=== PATIENT | female | born 1930 | race Caucasian/White ===

== ENCOUNTER 2018-05-17 14:34 | Inpatient (IN) | payer OTHER ==
[~2018-05-17] VITALS: Ht 167.6 cm; Wt 92.4 kg
--- NOTE | ~2018-05-17 | EKG ---
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: kath : 1930 Requested By: Jeri Vasquez Order Number: [id number] MD: Timi Zendejas Measurements Intervals [place] Rate: 156 P: PA: QRS: 68 QRSD: 85 T: 229 QT: 252 QTc: 406 Interpretive Statements Atrial fibrillation with rapid V-rate Repolarization abnormality, prob rate related Baseline wander in lead(s) V6 No previous ECG available for comparison Electronically Signed On 05-17-2018 21:38:28 CDT by Timi Zendejas [email or web address] <ELECTRONICALLY SIGNED> By: Timi Zendejas MD 05/17/18 2138 1438 1438 Timi Zendejas MD /JOSHUA
--- NOTE | ~2018-05-17 | HC ---
[facility] [place] [address] CONSULTATION Name: CHANDRAKANTFE Wendy Room #: 202-P [facility] IN ..#: [id number] Admission: 05/17/18 Attend Phys: Dilan Hall MD Discharge: Date of : [birth year] Report #: [id number] THIS REPORT FOR: //name// CC: AIYANA physician/PCP Dilan Hall DATE OF SERVICE: 05/20/2018 HISTORY OF PRESENT ILLNESS: The patient is an 87-year-old white female admitted with increased shortness of breath. She was noted to have atrial fibrillation with rapid ventricular rate with a rate around 150. Chest x-ray consistent with pneumonia. She also has hyponatremia, elevated creatinine. She has a history of a prior CVA with right-sided hemiparesis, upper extremity more than lower extremity. She notes that she was unable to ambulate alone premorbidly. She is very hard of hearing. 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 She is being treated for her pneumonia and COPD with exacerbation as well as her CHF exacerbation with an elevated BNP. She has acute on chronic systolic heart failure. She is being monitored regarding her hyponatremia and her renal insufficiency, which is noted to be acute on chronic. We are seeing her in rehabilitation medicine consultation. PAST MEDICAL HISTORY: Apparently has not seen a physician in approximately 20 years. 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 MEDICATIONS: Please see the full medication listing. The list includes prior herbal supplements and vitamins. ALLERGIES: Include no known drug allergies. HABITS: Former smoker, quit greater than a year ago. No history of alcohol abuse. SOCIAL HISTORY: Lives with her son and his in their home. She apparently lives in a third floor and there is noted to have someone always be there with her. She was able to mostly dress herself. Gait was with a roller walker. Per her history, she always needed someone with her when she ambulated. REVIEW OF SYSTEMS: Did not offer any current complaints of chest pain, shortness of breath or abdominal discomfort. She has some discomfort of that right upper extremity and has the weakness from the prior stroke. PHYSICAL EXAMINATION: GENERAL: She is a pleasant 87-year-old white female, who is very hard of hearing/appears to be deaf. NEUROLOGIC: Limited reading of lips is noted. She can follow basic 1 step [facility] [address] [place] [address] CONSULTATION Name: FE STALLINGS Room #: 202-P [facility] IN ..#: [id number] Admission: 05/17/18 Attend Phys: Dilan Hall MD Discharge: Date of : [birth year] Report #: [id number] commands. She is cooperative, although rather frustrated with her current condition. Facies appeared to be symmetric. She has evidence for some edema, swelling of both upper extremities, grade 1. Functional range of motion of the left upper extremity strength appears to be a grade 4-/5. Right upper extremity is weak. I would grade that at 2+ to 3-. Negative Thomas's. In her lower extremities, there is no focal calf swelling. Strength is a grade 3+/5. Toilet transfers are max assist with 3-4 steps max assist. ASSESSMENT: An 87-year-old white female with the following problem list: 1. Acute hypoxemic respiratory failure, likely multifactorial with congestive heart failure and chronic obstructive pulmonary disease. 2. 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 3. Chronic obstructive pulmonary disease with exacerbation. 4. Congestive heart failure exacerbation. 5. Pneumonia. 6. Atrial fibrillation with rapid ventricular rate. 7. Hyponatremia. 8. Renal failure, acute on chronic. PLAN: Therapy evaluations are underway. She certainly may benefit from an acute in-hospital inpatient rehabilitation stay to further improve her functional independence, so that she can return back to the home setting with family. At this point, we will continue to follow along with you. <ELECTRONICALLY SIGNED> By: Pawan Fitch MD 05/23/18 1228 1511 1958 Pawan Fitch MD /nt
--- NOTE | ~2018-05-17 | 2DMMODE ---
[facility] [address] [place] [address] 2 D/M-MODE ECHOCARDIOGRAM Name: FE STALLINGS Room #: 202-P [facility] IN [facility]#: [id number] Admission: 05/17/18 Attend Phys: Dilan Hall MD Discharge: Date of : [birth year] Date of Service: 05/19/18911 Report #: [id number] THIS REPORT FOR: //name// APPROVED REPORT Study performed: 05/19/2018 07:53:33 EXAM: Comprehensive 2D, Doppler, and color-flow Echocardiogram Patient Location: Bedside Room #: 202 Status: routine BSA: 2.02 BP: 150/79 mmHg Other Information Study Quality: Technically Difficult/Adequate Technically limited study due to body habitus, uncooperative patient. Indications Congestive Heart Failure COPD Atrial Fibrillation 2D Dimensions RVDd: 34.34 mm LVEF(%): 25.35 (>50%) IVSd: 11.92 (7-11mm) LVOT Diam: 18.76 (18-24mm) LVDd: 52.38 mm PWd: 10.70 (7-11mm) Ascending Ao: 28.48 (22-36mm) LVDs: 46.20 (25-40mm) Aortic Root: 25.79 mm IVC: 26.00 mm Rand's LVEF: 25.35 % Volumes Left Atrial Volume (Systole) Single Plane 4CH: 65.44 mL Single Plane 2CH: 48.64 mL LA ESV Index: 30.00 mL/m2 Aortic Valve AoV Peak Tan.: 1.59 m/s AO Peak Gr.: 10.93 mmHg LVOT Max P.63 mmHg LVOT Max V: 0.81 m/s ALICIA Vmax: 1.40 cm2 [facility] [address] [place] [address] [place] [address] 2 D/M-MODE ECHOCARDIOGRAM Name: CHANDRAKANTFE Wendy Room #: 202-P [facility] IN [facility].#: [id number] Admission: 05/17/18 Attend Phys: Dilan Hall MD Discharge: Date of : [birth year] Date of Service: 05/19/18 0912 Report #: [id number] Mitral Valve MV Decel. Time: 169.64 ms MV E Max Tan.: 1.39 m/s IVRT: 81.31 ms Pulmonary Valve PV Peak Tan.: 0.91 m/s PV Peak Gr.: 3.34 mmHg Tricuspid Valve TR Peak Tan.: 2.98 m/s RAP Estimate: 15.00 mmHg TR Peak Gr.: 35.42 mmHg PA Pressure: 50.00 mmHg Left Ventricle The left ventricle is normal size. Mild concentric left ventricular hypertrophy. Left ventricular systolic function is moderate to severely decreased. LVEF is 35%. This study is not technically sufficient to allow evaluation of the LV diastolic function due to atrial fibrillation. Right Ventricle The right ventricle is normal size. Right ventricle is hypokinetic. Atria The left atrium size is normal. Right atrium is mildly dilated. Aortic Valve Aortic valve is mildly calcified. No aortic regurgitation is present. There is no aortic valvular stenosis. Mitral Valve Mild mitral annular calcification. Mild to moderate mitral regurgitation. No evidence of mitral valve stenosis. Tricuspid Valve The tricuspid valve is normal in structure. Mild tricuspid regurgitation. PAP is estimated at 45 mmHg. Pulmonic Valve Pulmonic valve is not well visualized. Trace to mild pulmonic regurgitation. Great Vessels The aortic root is normal in size. IVC is dilated and collapses [facility] [address] [place] [address] 2 D/M-MODE ECHOCARDIOGRAM Name: FE STALLINGS Room #: 202-P [facility] IN ..#: [id number] Admission: 05/17/18 Attend Phys: Dilan Hall MD Discharge: Date of : [birth year] Date of Service: 05/19/18 0912 Report #: [id number] <50% with inspiration. Pericardium There is no pericardial effusion. <Conclusion> Left ventricular systolic function is moderate to severely decreased. LVEF is 35%. Aortic valve is mildly calcified. No aortic regurgitation or stenosis Mild mitral annular calcification. Mild to moderate mitral regurgitation. Mild tricuspid regurgitation. Pulmonary artery pressure estimated at 45 mmHg. There is no pericardial effusion. <ELECTRONICALLY SIGNED> By: Kaden Gu MD, [facility] 05/19/18911 1 1 Kaden Gu MD, [facility] /INF
--- NOTE | ~2018-05-17 | HC ---
[facility] [place] [address] CONSULTATION Name: FE STALLINGS Wendy Room #: 202-P [facility] IN ..#: [id number] Admission: 05/17/18 Attend Phys: Dilan Hall MD Discharge: Date of : [birth year] Report #: [id number] THIS REPORT FOR: //name// CC: [facility] physician/PCP Dilan Hall REASON FOR CONSULTATION: Congestive heart failure and AFib with RVR. HISTORY OF PRESENT ILLNESS: The patient is an 87-year-old female who apparently has not seen a physician in 20 some years, who presents with progressive shortness of breath and fatigue. In the ER, she was found to be in atrial fibrillation with rapid ventricular response. The patient is hearing impaired, but denies any chest pain. She thinks her shortness of breath is improved. She denies fevers or chills. She denies nausea, vomiting, diarrhea. PAST MEDICAL HISTORY: 1. Hearing impaired. 2. Possible prior CVA. SOCIAL HISTORY: She quit smoking. FAMILY HISTORY: Noncontributory. ALLERGIES: No known drug allergies. MEDICATIONS: Have been reviewed. REVIEW OF SYSTEMS: Twelve-point review of systems was performed and it was negative other than what I mentioned above. PHYSICAL EXAMINATION: VITAL SIGNS: Temperature is 36.7, pulse 103, respiration is 16, blood pressure 105/63, sats are 93% and she has been afebrile since she has been here. GENERAL: She is in no acute distress. HEENT: Oropharynx is clear. NECK: Supple, with no thyromegaly. HEART: Irregularly irregular with no murmurs, rubs, gallops. LUNGS: Clear to auscultation bilaterally. ABDOMEN: Soft, nontender, nondistended with no hepatosplenomegaly. EXTREMITIES: There is no clubbing, cyanosis. There is some mild edema. LABORATORY DATA: White count is 5.4, hemoglobin 12.8, platelets 247. ABG: pH 7.3, pCO2 35, pO2 73. Coags: INR is 1.7. Chemistry: Sodium 129; potassium 5.2; creatinine 1.5, improved from 1.7. Troponin is in the indeterminate range, max of 0.1. ProBNP is elevated at 7176. Her EKG shows atrial fibrillation with rapid ventricular response. Telemetry shows the same. Her EKG shows cephalization with pulmonary edema, possible left pleural effusion. This is my [facility] [address] [place] [address] CONSULTATION Name: FE STALLINGS Room #: 202-P [facility] IN [facility].#: [id number] Admission: 05/17/18 Attend Phys: Dilan Hall MD Discharge: Date of : [birth year] Report #: [id number] personal interpretation. ASSESSMENT: 1. Atrial fibrillation with rapid ventricular response. 2. Possible prior cerebrovascular accident. 3. Hearing impaired. 4. Acute congestive heart failure, possible systolic versus diastolic in nature. 5. Elevated troponin, likely secondary to atrial fibrillation with rapid ventricular response. 6. Acute renal failure. 7. Possible pneumonia. PLAN: In summary, the patient is an 87-year-old presenting with AFib with RVR and likely congestive heart failure. I will initiate oral diltiazem, so we can try and titrate off the diltiazem drip. We will need to initiate anticoagulation. With regards to her congestive heart failure, we will check an echocardiogram tomorrow. With regards to her elevated troponin, the etiology of this is unclear, but may be related to her AFib with RVR. There is no ischemia on her EKG and again we will await the echo results. <ELECTRONICALLY SIGNED> By: Timi Zendejas MD 05/23/18 1622 1004 1122 Timi Zendejas MD /nt
[2018-05-17] MEDS ORDERED: BAYER CHEWABLE81 MG PO (14:58)
[2018-05-17 15:02] LABS: BE(vivo) -5.3 mmol/L (-2 to +3); HCO3 19.4 mmol/L (22.0-26.0); PCO2 35.4 mmHg (35.0-45.0); pH 7.356 (7.360-7.450); sO2 94.2 % (92.0-98.0)
[2018-05-17 15:02] LABS: ABSOLUTE NEUTROPHILS 9.9 thou/uL (1.4-8.2); BASOPHILS 0.2 % (0.0-2.0); EOSINOPHILS 0.1 % (0.0-3.0); HEMATOCRIT 41.5 % (37.0-47.0); HEMOGLOBIN 13.6 gm/dL (12.0-15.0); LYMPHOCYTES 5.5 % (24.0-44.0); MCH 27.9 pg (26.0-34.0); MCHC 32.7 g/dL (28.0-37.0); MCV 85.3 fL (80.0-100.0); MONOCYTES 6.7 % (1.0-8.0); PLATELET COUNT 282 thou/uL (150-400); POLYS 87.5 % (36.0-66.0); RBC 4.86 mil/uL (4.20-5.00); RDW 15.4 % (10.5-14.5); WBC 11.4 thou/uL (4.0-11.0)
[2018-05-17 15:09] LABS: CALCIUM 9.4 mg/dL (8.5-10.1); CREATININE 1.7 mg/dL (0.6-1.0); POTASSIUM 5.1 mmol/L (3.5-5.1)
[2018-05-17 15:18] LABS: ALBUMIN 3.3 g/dL (3.4-5.0); TOTAL BILIRUBIN 0.5 mg/dL (<0.1-1.0); TOTAL PROTEIN 7.9 g/dL (6.4-8.2); TROPONIN-I 0.1 ng/mL (<0.06)
[2018-05-17 17:20] VITALS: BP 125/89
[2018-05-17 18:08] VITALS: BP 140/89
[2018-05-17 18:16] VITALS: BP 158/96
[2018-05-17 19:13] VITALS: BP 145/107
[2018-05-17 23:03] VITALS: BP 146/115
[2018-05-18] VITALS (7 sets, daily range): BP systolic 105–154; BP diastolic 63–99
[2018-05-18 04:13] LABS: HEMATOCRIT 38.1 % (37.0-47.0); HEMOGLOBIN 12.8 gm/dL (12.0-15.0); MCH 28.3 pg (26.0-34.0); MCHC 33.5 g/dL (28.0-37.0); MCV 84.4 fL (80.0-100.0); RBC 4.51 mil/uL (4.20-5.00); RDW 15.1 % (10.5-14.5); WBC 5.4 thou/uL (4.0-11.0)
[2018-05-18 04:19] LABS: CALCIUM 9.1 mg/dL (8.5-10.1); CREATININE 1.5 mg/dL (0.6-1.0); POTASSIUM 5.2 mmol/L (3.5-5.1)
[2018-05-19] VITALS (8 sets, daily range): BP systolic 102–150; BP diastolic 60–99
[2018-05-19 07:28] LABS: HEMATOCRIT 39.2 % (37.0-47.0); HEMOGLOBIN 12.9 gm/dL (12.0-15.0); MCV 84.8 fL (80.0-100.0); RBC 4.62 mil/uL (4.20-5.00); RDW 15.3 % (10.5-14.5); WBC 12.5 thou/uL (4.0-11.0)
[2018-05-19 07:38] LABS: CALCIUM 9.1 mg/dL (8.5-10.1); POTASSIUM 5.2 mmol/L (3.5-5.1)
[2018-05-20 03:25] LABS: ABSOLUTE NEUTROPHILS 10.4 thou/uL (1.4-8.2); BASOPHILS 0.3 % (0.0-2.0); HEMATOCRIT 40.7 % (37.0-47.0); HEMOGLOBIN 13.5 gm/dL (12.0-15.0); LYMPHOCYTES 1.3 % (24.0-44.0); MCH 27.7 pg (26.0-34.0); PLATELET COUNT 293 thou/uL (150-400); POLYS 94.4 % (36.0-66.0); RBC 4.85 mil/uL (4.20-5.00); RDW 15.6 % (10.5-14.5)
[2018-05-20 03:33] LABS: CALCIUM 8.8 mg/dL (8.5-10.1); CREATININE 2.1 mg/dL (0.6-1.0); POTASSIUM 4.6 mmol/L (3.5-5.1)
[2018-05-20 04:52] VITALS: BP 137/40
[2018-05-20 07:58] VITALS: BP 121/93
[2018-05-20 09:52] VITALS: BP 90/66
[2018-05-20 12:10] VITALS: BP 136/71
[2018-05-20 15:50] VITALS: BP 126/86
[2018-05-20 19:25] VITALS: BP 104/60
[2018-05-21 00:04] VITALS: BP 121/102
[2018-05-21 03:25] LABS: CALCIUM 8.6 mg/dL (8.5-10.1); CREATININE 1.9 mg/dL (0.6-1.0); POTASSIUM 4.3 mmol/L (3.5-5.1)
[2018-05-21 04:58] VITALS: BP 134/80
[2018-05-21 08:00] VITALS: BP 114/85
[2018-05-21 12:00] VITALS: BP 153/95
[2018-05-21 16:00] VITALS: BP 156/106
[2018-05-21 19:20] VITALS: BP 146/111
[2018-05-22 02:51] LABS: ABSOLUTE NEUTROPHILS 9.7 thou/uL (1.4-8.2); BASOPHILS 0.1 % (0.0-2.0); CALCIUM 8.4 mg/dL (8.5-10.1); CREATININE 1.7 mg/dL (0.6-1.0); HEMATOCRIT 44.8 % (37.0-47.0); HEMOGLOBIN 14.6 gm/dL (12.0-15.0); LYMPHOCYTES 1.9 % (24.0-44.0); MCH 28.1 pg (26.0-34.0); MCHC 32.7 g/dL (28.0-37.0); MCV 85.9 fL (80.0-100.0); MONOCYTES 3.3 % (1.0-8.0); PLATELET COUNT 266 thou/uL (150-400); POLYS 94.7 % (36.0-66.0); RBC 5.22 mil/uL (4.20-5.00); RDW 15.7 % (10.5-14.5); WBC 10.2 thou/uL (4.0-11.0)
[2018-05-22 04:14] VITALS: BP 155/105
[2018-05-22 07:14] VITALS: BP 153/113
[2018-05-22 11:28] VITALS: BP 147/115
[2018-05-22 15:19] VITALS: BP 148/88
[2018-05-22 20:30] VITALS: BP 129/901
[2018-05-22 23:51] VITALS: BP 149/95
[2018-05-23 04:45] VITALS: BP 146/97
[2018-05-23 07:16] VITALS: BP 144/102
[2018-05-23 11:29] VITALS: BP 127/98
[2018-05-23 12:39] VITALS: BP 127/98
[2018-05-23 15:49] VITALS: BP 118/85
[2018-05-23 20:45] VITALS: BP 118/87
[2018-05-24 04:30] VITALS: BP 132/107
[2018-05-24 08:19] VITALS: BP 132/93
[2018-05-24] MEDS ORDERED: COLACE 100 MG100 MG PO (11:18)
[2018-05-24] MEDS ORDERED: LEVAQUIN 500 M500 M2 PO (11:18)
[2018-05-24] MEDS ORDERED: LOPRESSOR25 PO (11:18)
[2018-05-24] MEDS ORDERED: CARDIZEM CD120 MG PO (11:18)
[2018-05-24] MEDS ORDERED: MIRALAX17 GM PO (11:18)
[2018-05-24] MEDS ORDERED: HYDROCODON-ACE1 EAC7 PO (11:21)
[2018-05-24 12:22] VITALS: BP 127/98
[2018-05-24 12:30] VITALS: BP 130/84
== END 2018-05-24 13:35 | disposition hospice, home (50) | DRG 871 ==
LOC: ER 14:34 → 2N 15:32 → EROBS 15:32 → 2N 18:22
PROVIDERS: Hospitalist; Nurse Practitioner Family
DX: A41.9 Sepsis, unspecified organism (principal); J18.9 Pneumonia, unspecified organism; J96.01 Acute respiratory failure with hypoxia; I50.43 Acute on chronic combined systolic (congestive) and diastolic (congestive) heart failure; E87.1 Hypo-osmolality and hyponatremia; N17.9 Acute kidney failure, unspecified; I69.351 Hemiplegia and hemiparesis following cerebral infarction affecting right dominant side; J44.1 Chronic obstructive pulmonary disease with (acute) exacerbation; J44.0 Chronic obstructive pulmonary disease with (acute) lower respiratory infection; I13.2 Hypertensive heart and chronic kidney disease with heart failure and with stage 5 chronic kidney disease, or end stage renal disease; Z51.5 Encounter for palliative care; H91.90 Unspecified hearing loss, unspecified ear; Z66 Do not resuscitate; I48.91 Unspecified atrial fibrillation; N18.9 Chronic kidney disease, unspecified; I08.1 Rheumatic disorders of both mitral and tricuspid valves; T50.2X5A Adverse effect of carbonic-anhydrase inhibitors, benzothiadiazides and other diuretics, initial encounter; Z87.891 Personal history of nicotine dependence; Y92.89 Other specified places as the place of occurrence of the external cause
CPT/HCPCS: 10081